=== PATIENT | male | born 1955 | race Caucasian/White ===

== ENCOUNTER 2018-10-20 18:24 | Inpatient (IN) | payer MEDICAID ==
[~2018-10-20] VITALS: Ht 177.8 cm; Wt 98.4 kg
--- NOTE | ~2018-10-20 | MORECARE ---
CASE MANAGEMENT DISCHARGE SUMMARY PATIENT: SONNY GALLARDO UNIT: [id number] ADM DATE: 10/20/18 AGE: 63 : 55 SEX: M ROOM/BED: D.1211 AUTHOR: NITZA,DOC PHYSICIAN: REFERRING PHYSICIAN: ONUR HAMMONDS MD DATE OF SERVICE: 10/29/18 Discharge Plan Patient Name: SONNY GALLARDO Facility: [facility]:[place] : 1955 Planned Disposition: Nursing Facility [place] Cert Anticipated Discharge Date: Discharge Date: Expected LOS: Initial Reviewer: [email or web address] Initial Review Date: 10/20/2018 Generated: 10/29/18 3:49 pm Comments DCP- Discharge Planning Updated by [email or web address]: Sara Contreras on 10/29/18 1:[address] CM called and left a message with Maia Rowe regarding plan for patient to return to [facility] tomorrow. CM called and spoke with Eliezer at [facility] about plan for patient to return to care home tomorrow. Faxed updated records as requested. CM called Beth Ortiz with [facility] ( ) and notified her of plans to discharge patient back to care home tomorrow. Beth verbalized understanding and satisfaction with discharge plan. CM will fax Beth update of records with DC summary upon discharge. DCP- Discharge Planning Updated by [id number]: Jake Meyer on 10/27/18 8:[address] Patient Name: SONNY GALLARDO Encounter No: [id number] : 1955 Primary Insurance: MEDICAID [place] Anticipated DC Date: Planned Disposition: Nursing Facility [place] Cert External Planned Provider: [facility], [facility] C[facility] MEDICAID BED DCP follow-up note: CM RECEIVED CALL FROM [facility]IA, , CLINICAL LIAISON FOR [facility], WHO REQUESTED HOSPITAL UPDATE. CM FAXED UPDATE TO [facility] VIA [facility] AT [phone]. CHART REVIEW INDICATES COCKTAIL SERVER FOR [facility] IS JEREMIAH CONTRERAS, CELL NUMBER [phone]. FACILITY CONTACT PHONE NUMBER [phone]. PT IS IN ADULT PROTECTIVE SERVICES CUSTODY. COCKTAIL SERVER FOR ADULT PROTECTIVE SERVICES IS BETH ORTIZ; Office [phone], , DISCHARGE PLAN IS FOR PT TO RETURN TO [facility], HOWEVER IF HE REQUIRES HD, THEY CANNOT ACCEPT HIM BACK. CM TO FOLLOW TO ASSIST NEEDED. Jake Meyer, CASE MANAGEMENT DCP- Discharge Planning Updated by [email or web address]: Breann Fleming on 10/26/18 6:[address] LATE ENTRY 1608 CM RECEIVED A TELEPHONE CALL FROM JEREMIAH CONTRERAS FROM [facility] [place]. MR GALLARDO IS A MOLDING ENGINEER RESIDENT AT THIS FACILITY. FACILITY CONTACT PHONE NUMBER [phone]. HER CELL NUMBER [phone]. SHE REQUESTED CLINICAL UPDATE. THE PLAN IS FOR HIM TO RETURN HOWEVER IF HE REQUIRES HD, THEY CANNOT ACCEPT HIM BACK. FACILITY WOULD NOT BE ABLE TO FACILITATE THIS TREATMENT PLAN. HE IS IN [facility] CUSTODY. CONTACT INFORMATION IN PREVIOUS NOTE. CONTACT NUMBER TO [facility] 3 PROVIDED SHE HAD BEEN TRANSFERED "MANY TIMES". CM TO FOLLOW TO ASSIST IS APPROPRIATE. DCP- Discharge Planning Updated by [email or web address]: Sara Contreras on 10/21/18 3:[address] CM received call from Beth Ortiz with [facility]. Notified CM that patient was in custody of [facility] and contact numbers provided for consents. Office [phone], , Last DP export: 10/27/18 8:02 Patient Name: SONNY GALLARDO Page 80854 at 1449 All edits/amendments must be made on the electronic document DICTATION DATE: 10/29/18 1448 GOAT HERDER: VICK 10/29/18 1448 RPT#: [id number] DC DATE: STATUS: ADM IN [facility] [address] [place] [address] END OF REPORT
--- NOTE | ~2018-10-20 | MORECARE ---
CASE MANAGEMENT DISCHARGE SUMMARY PATIENT: SONNY GALLARDO UNIT: [id number] ADM DATE: 10/20/18 AGE: 63 : 55 SEX: M ROOM/BED: D.1211 AUTHOR: HCARLES GODDARD PHYSICIAN: REFERRING PHYSICIAN: ONUR HAMMONDS MD DATE OF SERVICE: 10/26/18 Discharge Plan Patient Name: SONNY GALLARDO Facility: [facility]:[place] : 1955 Planned Disposition: Admitted as an inpatient to this hosp Anticipated Discharge Date: Discharge Date: Expected LOS: Initial Reviewer: [id number] Initial Review Date: 10/20/2018 Generated: 10/26/18 8:56 pm Comments DCP- Discharge Planning Updated by [email or web address]: Breann Bernadette on 10/26/18 6:[address] LATE ENTRY 1608 CM RECEIVED A TELEPHONE CALL FROM [facility]H CONTR[facility]AS [facility]. 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 FACILITY CONTACT PHONE NUMBER [phone]. HER CELL NUMBER [phone]. SHE REQUESTED CLINICAL UPDATE. THE PLAN IS FOR HIM TO RETURN HOWEVER IF HE REQUIRES HD, THEY CANNOT ACCEPT HIM BACK. FACILITY WOULD NOT BE ABLE TO FACILITATE THIS TREATMENT PLAN. HE IS IN APS CUSTODY. CONTACT INFORMATION IN PREVIOUS NOTE. CONTACT NUMBER TO [facility] 3 PROVIDED SHE HAD BEEN TRANSFERED "MANY TIMES". CM TO FOLLOW TO ASSIST IS APPROPRIATE. DCP- Discharge Planning Updated by [id number]: Sara Contreras on 10/21/18 3:[address] CM received call from Beth Ortiz with [facility]. Notified CM that patient was in custody of [facility] and contact numbers provided for consents. Office [phone], , Last DP export: 10/21/18 4:09 p Patient Name: SONNY GALLARDO Page 42825 at 6 All edits/amendments must be made on the electronic document DICTATION DATE: 10/26/181954 TRANSPORT TANK TECHNICIAN: DM 10/26/181954 RPT#: [id number] DC DATE: STATUS: ADM IN [facility] [address] [place] [address] END OF REPORT
--- NOTE | ~2018-10-20 | MORECARE ---
CASE MANAGEMENT DISCHARGE SUMMARY PATIENT: SONNY GALLARDO UNIT: [id number] ADM DATE: 10/20/18 AGE: 63 : 55 SEX: M ROOM/BED: D.1211 AUTHOR: CHARLES GODDARD PHYSICIAN: REFERRING PHYSICIAN: ONUR HAMMONDS MD DATE OF SERVICE: 10/21/18 Discharge Plan Patient Name: SONNY GALLARDO [facility] [facility] 1955 Planned Disposition: Anticipated Discharge Date: Discharge Date: Expected LOS: Initial Reviewer: [id number] Initial Review Date: 10/20/2018 Generated: 10/21/18 6:01 pm Comments DCP- Discharge Planning Updated by [email or web address]: Sara Contreras on 10/21/18 3:[address] CM received call from Beth Otriz with [facility]. Notified CM that patient was in custody of [facility] and contact numbers provided for consents. Office [phone], , External Providers External Provider: OTHER-OTHER Next Contact Date: Service Request Date: Service Type: Resolution: Reviewer: Comments: Last DP export: 10/21/18 3:53 p Patient Name: SONNY GALLARDO Page 97586 at 1701 All edits/amendments must be made on the electronic document DICTATION DATE: 10/21/181699 COMPUTER NETWORKER: VICK 10/21/181699 RPT#: [id number] DC DATE: STATUS: ADM IN [facility] [address] [place] [address] END OF REPORT
--- NOTE | ~2018-10-20 | MORECARE ---
CASE MANAGEMENT DISCHARGE SUMMARY PATIENT: SONNY GALLARDO UNIT: [id number] ADM DATE: 10/20/18 AGE: 63 : 55 SEX: M ROOM/BED: D.1211 AUTHOR: NITZA,DOC PHYSICIAN: REFERRING PHYSICIAN: ONUR HAMMONDS MD DATE OF SERVICE: 10/27/18 Discharge Plan Patient Name: SONNY GALLARDO Facility: [facility]:[place] : 1955 Planned Disposition: Nursing Facility [place] Cert Anticipated Discharge Date: Discharge Date: Expected LOS: Initial Reviewer: [id number] Initial Review Date: 10/20/2018 Generated: 10/27/18 10:02 am Comments DCP- Discharge Planning Updated by [id number]: Jake Meyer on 10/27/18 8:[address] Patient Name: SONNY GALLARDO Encounter No: [id number] : 1955 Primary Insurance: MEDICAID [place] Anticipated DC Date: Planned Disposition: Nursing Facility [place] Cert External Planned Provider: [facility], VINYL INSTALLER CARE MEDICAID BED DCP follow-up note: CM RECEIVED CALL FROM [employer], , CLINICAL LIAISON FOR [facility], WHO REQUESTED HOSPITAL UPDATE. CM FAXED UPDATE TO [facility] VIA [facility] AT [phone]. CHART REVIEW INDICATES NATIONAL FLATBED TRUCK DRIVER FOR [facility] IS JEREMIAH CONTRERAS, CELL NUMBER [phone]. FACILITY CONTACT PHONE NUMBER [phone]. PT IS IN ADULT PROTECTIVE SERVICES CUSTODY. NATIONAL FLATBED TRUCK DRIVER FOR ADULT PROTECTIVE SERVICES IS BETH ORTIZ; Office [phone], , DISCHARGE PLAN IS FOR PT TO RETURN TO [facility], HOWEVER IF HE REQUIRES HD, THEY CANNOT ACCEPT HIM BACK. CM TO FOLLOW TO ASSIST NEEDED. Jake Meyer, CASE MANAGEMENT DCP- Discharge Planning Updated by [email or web address]: Breann Fleming on 10/26/18 6:[address] LATE ENTRY 1608 CM RECEIVED A TELEPHONE CALL FROM JEREMIAH CONTRERAS FROM [facility] MR GALLARDO IS A VINYL INSTALLER RESIDENT AT THIS FACILITY. FACILITY CONTACT PHONE NUMBER [phone]. HER CELL NUMBER [phone]. SHE REQUESTED CLINICAL UPDATE. THE PLAN IS FOR HIM TO RETURN HOWEVER IF HE REQUIRES HD, THEY CANNOT ACCEPT HIM BACK. FACILITY WOULD NOT BE ABLE TO FACILITATE THIS TREATMENT PLAN. HE IS IN APS CUSTODY. CONTACT INFORMATION IN PREVIOUS NOTE. CONTACT NUMBER TO [facility] 3 PROVIDED SHE HAD BEEN TRANSFERED "MANY TIMES". CM TO FOLLOW TO ASSIST IS APPROPRIATE. DCP- Discharge Planning Updated by [email or web address]: Sara Contreras on 10/21/18 3:[address] CM received call from Beth Ortiz with [facility]. Notified CM that patient was in custody of [facility] and contact numbers provided for consents. Office [phone], , Last DP export: 10/27/18 7:52 Patient Name: SONNY GALLARDO Page 48626 at 0902 All edits/amendments must be made on the electronic document DICTATION DATE: 10/27/18901 FOOTWEAR SALES COORDINATOR: VICK 10/27/18901 RPT#: [id number] DC DATE: STATUS: ADM IN [facility] [address] [place] [address] END OF REPORT
--- NOTE | ~2018-10-20 | OP ---
PATIENT NAME: SONNY GALLARDO MEDICAL RECORD: [id number] :55 LOCATION:D.M3 D.1211 ADMISSION DATE:10/20/18 SURGEON: SHAGGY PAEZ MD DATE OF OPERATION: 10/25/2018 PREOPERATIVE DIAGNOSES: 1. Need for IV access. 2. Dysphagia. 3. History of cerebrovascular accident. 4. Right-sided paresthesias. POSTOPERATIVE DIAGNOSES: 1. Need for IV access. 2. Dysphagia. 3. History of cerebrovascular accident. 4. Right-sided paresthesias. PROCEDURE: Left subclavian vein triple-lumen central venous line placement. SURGEON: Shaggy Paez MD REPORT OF PROCEDURE: The patient's left chest was prepped and draped in sterile fashion. A 5 mL of 1% lidocaine was infused into the subcutaneous tissues. A needle was used to cannulate the left subclavian vein and a guidewire was advanced with ease. Over this wire, a dilator was placed followed by the triple lumen catheter. The catheter aspirated nonpulsatile dark blood and flushed easily in all 3 ports. This was sutured into place with 3-0 silk ties and dressed appropriately. COMPLICATIONS: None. CONDITION: Stable. ANESTHESIA: Local. BLOOD LOSS: Minimal. Procedure done at the bedside. TRANSINT:[id number] Voice Confirmation ID: [id number] DOCUMENT ID: [id number] SHAGGY PAEZ MD CC: [id number] DICTATION DATE: 10/25/18 1134 DIESEL SERVICE APPRENTICE: 10/25/[address] [facility] [address] [place] [address]
--- NOTE | ~2018-10-20 | MORECARE ---
CASE MANAGEMENT DISCHARGE SUMMARY PATIENT: SONNY GALLARDO UNIT: [id number] ADM DATE: 10/20/18 AGE: 63 : 55 SEX: M ROOM/BED: D.1211 AUTHOR: CHARLES GODDARD PHYSICIAN: REFERRING PHYSICIAN: ONUR HAMMONDS MD DATE OF SERVICE: 10/27/18 Discharge Plan Patient Name: SONNY GALLARDO Facility: [facility]:[place] : 1955 Planned Disposition: Admitted as an inpatient to this hosp Anticipated Discharge Date: Discharge Date: Expected LOS: Initial Reviewer: [email or web address] Initial Review Date: 10/20/2018 Generated: 10/27/18 9:52 am Comments DCP- Discharge Planning Updated by [email or web address]: Breann Fleming on 10/26/18 6:[address] LATE ENTRY 1608 CM RECEIVED A TELEPHONE CALL FROM JEREMIAH CONTRERAS FROM [facility]. MR GALLARDO IS A ASSOCIATE SPA DIRECTOR RESIDENT AT THIS FACILITY. FACILITY CONTACT PHONE NUMBER [phone]. HER CELL NUMBER [phone]. SHE REQUESTED CLINICAL UPDATE. THE PLAN IS FOR HIM TO RETURN HOWEVER IF HE REQUIRES HD, THEY CANNOT ACCEPT HIM BACK. FACILITY WOULD NOT BE ABLE TO FACILITATE THIS TREATMENT PLAN. HE IS IN [facility]PS CUSTODY. CONTACT INFORMATION IN PREVIOUS NOTE. CONTACT NUMBER TO [facility] 3 PROVIDED SHE HAD BEEN TRANSFERED "MANY TIMES". CM TO FOLLOW TO ASSIST IS APPROPRIATE. DCP- Discharge Planning Updated by [id number]: Sara Contreras on 10/21/18 3:[address] CM received call from Beth Ortiz with [facility]. Notified CM that patient was in custody of [facility] and contact numbers provided for consents. Office [phone], , External Providers External Provider: OTHER-OTHER Next Contact Date: 10/27/2018 Service Request Date: Service Type: Resolution: Reviewer: Comments: Last DP export: 10/26/18 6:56 Patient Name: SONNY GALLARDO Page 71727 at 0852 All edits/amendments must be made on the electronic document DICTATION DATE: 10/27/18851 ECCLESIASTICAL WORKER: VICK 10/27/18851 RPT#: [id number] DC DATE: STATUS: ADM IN [facility] [address] [place] [address] END OF REPORT
--- NOTE | ~2018-10-20 | MORECARE ---
CASE MANAGEMENT DISCHARGE SUMMARY PATIENT: SONNY GALLARDO UNIT: [id number] ADM DATE: 10/20/18 AGE: 63 : 55 SEX: M ROOM/BED: D.1211 AUTHOR: CHARLES GODDARD PHYSICIAN: REFERRING PHYSICIAN: ONUR HAMMONDS MD DATE OF SERVICE: 10/21/18 Discharge Plan Patient Name: SONNY GALLARDO Facility: [facility]:[place] : 1955 Planned Disposition: Anticipated Discharge Date: Discharge Date: Expected LOS: Initial Reviewer: [email or web address] Initial Review Date: 10/20/2018 Generated: 10/21/18 5:53 pm Comments DCP- Discharge Planning Updated by [email or web address]: Sara Contreras on 10/21/18 3:[address] CM received call from Beth Ortiz with [facility]. Notified CM that patient was in custody of [facility] and contact numbers provided for consents. Office [phone], , Patient Name: SONNY GALLARDO Page 71350 at 1653 All edits/amendments must be made on the electronic document DICTATION DATE: 10/21/181652 BAND EDGER: VICK 10/21/181652 RPT#: [id number] DC DATE: STATUS: ADM IN [facility] [address] [place] [address] END OF REPORT
--- NOTE | ~2018-10-20 | MORECARE ---
CASE MANAGEMENT DISCHARGE SUMMARY PATIENT: SONNY GALLARDO UNIT: [id number] ADM DATE: 10/20/18 AGE: 63 : 55 SEX: M ROOM/BED: D.1211 AUTHOR: NITZADOC PHYSICIAN: REFERRING PHYSICIAN: ONUR HAMMONDS MD DATE OF SERVICE: 11/02/18 Discharge Plan Patient Name: SONNY GALLARDO Facility: [facility]:[place] : 1955 Planned Disposition: Nursing Facility [place] Cert Anticipated Discharge Date: 10/30/18 Discharge Date: 10/30/2018 Expected LOS: 10 Initial Reviewer: [id number] Initial Review Date: 10/20/2018 Generated: 11/02/18 3:38 pm Comments DCP- Discharge Planning Updated by [id number]: Sara Contreras on 10/29/18 1:[address] CM called and left a message with Maia Rowe regarding plan for patient to return to [facility] tomorrow. CM called and spoke with Eliezer at [facility] about plan for patient to return to [facility] tomorrow. Faxed updated records as requested. CM called Beth Ortiz with [facility] ( ) and notified her of plans to discharge [facility] to [facility] tomorrow. Beth verbalized understanding and satisfaction with discharge plan. CM will fax Beth update of records with DC summary upon discharge. DCP- Discharge Planning Updated by [email or web address]: Jake Meyer on 10/27/18 8:[address] Patient Name: SONNY GALLARDO Encounter No: [id number] : 1955 Primary Insurance: MEDICAID [place] Anticipated DC Date: Planned Disposition: Nursing Facility [place] Cert External Planned Provider: [facility], APPLICATION MANAGER CARE MEDICAID BED DCP follow-up note: CM RECEIVED CALL FROM [facility], , CLINICAL LIAISON FOR [facility], WHO REQUESTED HOSPITAL UPDATE. CM FAXED UPDATE TO [facility]IA [facility] AT [phone]. CHART REVIEW INDICATES SALES AND MERCHANDISING REPRESENTATIVE FOR [facility] IS JEREMIAH CONTRERAS, CELL NUMBER [phone]. FACILITY CONTACT PHONE NUMBER [phone]. PT IS IN ADULT PROTECTIVE SERVICES CUSTODY. SALES AND MERCHANDISING REPRESENTATIVE FOR ADULT PROTECTIVE SERVICES IS BETH ORTIZ; Office [phone], , DISCHARGE PLAN IS FOR PT TO RETURN TO [facility], HOWEVER IF HE REQUIRES HD, THEY CANNOT ACCEPT HIM BACK. CM TO FOLLOW TO ASSIST NEEDED. Jake Meyer, CASE MANAGEMENT DCP- Discharge Planning Updated by [id number]: Breann Fleming on 10/26/18 6:[address] LATE ENTRY 1608 CM RECEIVED A TELEPHONE CALL FROM JEREMIAH CONTRERAS FROM [facility]. MR GALLARDO IS A [employer]CI RESIDENT AT THIS FACILITY. FACILITY CONTACT PHONE NUMBER [phone]. HER CELL NUMBER [phone]. SHE REQUESTED CLINICAL UPDATE. THE PLAN IS FOR HIM TO RETURN HOWEVER IF HE REQUIRES HD, THEY CANNOT ACCEPT HIM BACK. FACILITY WOULD NOT BE ABLE TO FACILITATE THIS TREATMENT PLAN. HE IS IN [facility] CUSTODY. CONTACT INFORMATION IN PREVIOUS NOTE. CONTACT NUMBER TO [facility] 3 PROVIDED SHE HAD BEEN TRANSFERED "MANY TIMES". CM TO FOLLOW TO ASSIST IS APPROPRIATE. DCP- Discharge Planning Updated by [id number]: Sara Contreras on 10/21/18 3:[address] CM received call from Beth Ortiz with [facility]. Notified CM that patient was in custody of [facility] and contact numbers provided for consents. Office [phone], , Last DP export: 10/29/18 1:49 Patient Name: SONNY GALLARDO Page 76088 at 1438 All edits/amendments must be made on the electronic document DICTATION DATE: 11/02/188 DETECTIVE PRIVATE EYE: VICK 11/02/18 143 RPT#: [id number] DC DATE:10/30/18 STATUS: DIS IN [facility] [address] [place] [address] END OF REPORT
--- NOTE | ~2018-10-20 | MORECARE ---
CASE MANAGEMENT DISCHARGE SUMMARY PATIENT: SONNY GALLARDO UNIT: [id number] ADM DATE: 10/20/18 AGE: 63 : 55 SEX: M ROOM/BED: D.1211 AUTHOR: NITZADOC PHYSICIAN: REFERRING PHYSICIAN: ONUR HAMMONDS MD DATE OF SERVICE: 11/02/18 Discharge Plan Patient Name: SONNY GALLARDO Facility: [facility]:[place] : 1955 Planned Disposition: Nursing Facility [place] Cert Anticipated Discharge Date: 10/30/18 Discharge Date: 10/30/2018 Expected LOS: 10 Initial Reviewer: [email or web address] Initial Review Date: 10/20/2018 Generated: 11/02/18 3:47 pm Comments DCP- Discharge Planning Updated by [id number]: Breann Fleming on 11/02/18 1:[address] LATE ENTRY 1237 TC TO JEREMIAH CONTRERAS BILLING ASSISTANT AT [facility]. LEFT VOICE MAIL ON [phone] HER PERSONAL CELL TO VERIFY IF SHE HAD ALL NECESSARY INFORMATION OR HAD ANY QUESTIONS. NO CALL BACK AT THIS TIME. DCP- Discharge Planning Updated by [email or web address]: Sara Contreras on 10/29/18 1:[address] CM called and left a message with Maia Rowe regarding plan for patient to return to [facility] home tomorrow. CM called and spoke with Eliezer at [facility] about plan for [facility]. Faxed updated records as requested. CM called Beth Ortiz with [facility] ( ) and notified her of plans to discharge patient [facility]. Beth verbalized understanding and satisfaction with discharge plan. CM will fax Beth update of records with DC summary upon discharge. DCP- Discharge Planning Updated by [id number]: Jake Meyer on 10/27/18 8:[address] Patient Name: SONNY GALLARDO Encounter No: [id number] : 1955 Primary Insurance: MEDICAID [place] Anticipated DC Date: Planned Disposition: Nursing Facility [place] Cert External Planned Provider: [facility], POLISHING MACHINE OPERATOR HELPER CARE MEDICAID BED DCP follow-up note: CM RECEIVED CALL FROM MAIA, , CLINICAL LIAISON FOR [facility], WHO REQUESTED HOSPITAL UPDATE. CM FAXED UPDATE TO [facility] VIA [facility] AT [phone]. CHART REVIEW INDICATES BILLING ASSISTANT FOR [facility] IS JEREMIAH CONTRERAS, CELL NUMBER [phone]. FACILITY CONTACT PHONE NUMBER [phone]. PT IS IN ADULT PROTECTIVE SERVICES CUSTODY. BILLING ASSISTANT FOR ADULT PROTECTIVE SERVICES IS BETH ORTIZ; Office [phone], , DISCHARGE PLAN IS FOR PT TO RETURN TO [facility], HOWEVER IF HE REQUIRES HD, THEY CANNOT ACCEPT HIM BACK. CM TO FOLLOW TO ASSIST NEEDED. Jake Meyer, CASE MANAGEMENT DCP- Discharge Planning Updated by [id number]: Breann Allens on 10/26/18 6:[address] LATE ENTRY 1608 CM RECEIVED A TELEPHONE CALL FROM JEREMIAH CONTRERAS FROM [facility]. MR GALLARDO IS A POLISHING MACHINE OPERATOR HELPER RESIDENT AT THIS FACILITY. FACILITY CONTACT PHONE NUMBER [phone]. HER CELL NUMBER [phone]. SHE REQUESTED CLINICAL UPDATE. THE PLAN IS FOR HIM TO RETURN HOWEVER IF HE REQUIRES HD, THEY CANNOT ACCEPT HIM BACK. FACILITY WOULD NOT BE ABLE TO FACILITATE THIS TREATMENT PLAN. HE IS IN [facility] CUSTODY. CONTACT INFORMATION IN PREVIOUS NOTE. CONTACT NUMBER TO [facility] 3 PROVIDED SHE HAD BEEN TRANSFERED "MANY TIMES". CM TO FOLLOW TO ASSIST IS APPROPRIATE. DCP- Discharge Planning Updated by [id number]: Saraalanis Contreras on 10/21/18 3:[address] CM received call from Beth Ortiz with [facility]. Notified CM that patient was in custody of [facility] and contact numbers provided for consents. Office [phone], , Last DP export: 11/02/18 1:38 Patient Name: SONNY GALLARDO Page 81899 at 3607 All edits/amendments must be made on the electronic document DICTATION DATE: 11/02/186 LABORATORY MONITOR: VICK 11/02/18 1441 RPT#: [id number] DC DATE:10/30/18 STATUS: DIS IN [facility] [address] [place] [address] END OF REPORT
--- NOTE | ~2018-10-20 | MORECARE ---
CASE MANAGEMENT DISCHARGE SUMMARY PATIENT: SONNY GALLARDO UNIT: [id number] ADM DATE: 10/20/18 AGE: 63 : 55 SEX: M ROOM/BED: D.1211 AUTHOR: CHARLES GODDARD PHYSICIAN: REFERRING PHYSICIAN: ONUR HAMMONDS MD DATE OF SERVICE: 10/21/18 Discharge Plan Patient Name: SONNY GALLARDO [facility] : 1955 Planned Disposition: Anticipated Discharge Date: Discharge Date: Expected LOS: Initial Reviewer: [id number] Initial Review Date: 10/20/2018 Generated: 10/21/18 6:09 pm Comments DCP- Discharge Planning Updated by [id number]: Sara Contreras on 10/21/18 3:[address] CM received call from Beth Ortiz with [facility]. Notified CM that patient was in custody of [facility] and contact numbers provided for consents. Office [phone], , External Providers External Provider: OTHER-OTHER Next Contact Date: Service Request Date: Service Type: Resolution: Reviewer: Comments: Last DP export: 10/21/18 4:01 p Patient Name: SONNY GALLARDO Page 92358 at 1709 All edits/amendments must be made on the electronic document DICTATION DATE: 10/21/181708 QUALITY COORDINATOR: VICK 10/21/181708 RPT#: [id number] DC DATE: STATUS: ADM IN [facility] [address] [place] [address] END OF REPORT
[2018-10-21] VITALS (7 sets, daily range): BP systolic 111–155; BP diastolic 44–79; BMI 31.2; BMI 31.1
[2018-10-21] MEDS ORDERED: HUMULIN R100 U/ML SC (01:15)
[2018-10-21] MEDS ORDERED: PHENERGAN25 M1 PO (01:18)
[2018-10-21] MEDS ORDERED: BOUDREAUXS BUTT60 GM TOPICAL (01:20)
[2018-10-21] MEDS ORDERED: APAP325 MG PO (01:21)
[2018-10-21] MEDS ORDERED: DULCOLAX10 MG/SUPP RC (01:22)
[2018-10-21] MEDS ORDERED: ATIVAN0.5 MG PO (01:26)
[2018-10-21] MEDS ORDERED: MORPHINE S10 MG/5 ML PO (01:28)
[2018-10-21] MEDS ORDERED: ROCEPHIN 1 GM/D51 G1 IVPB (01:30)
[2018-10-21 06:22] LABS: HEMATOCRIT 33.9 % (42.0-54.0); HEMOGLOBIN 10.7 g/dL (13.5-17.5); MCH 26.4 pg (26.0-34.0); MCHC 31.6 g/dL (31.0-37.0); MCV 83.5 fL (80.0-100.0); MEAN PLATELET VOLUME 11.2 fL (7.4-10.4); PLATELET COUNT 111 10x3/uL (130-400); RBC 4.06 10x6/uL (4.20-6.10); RDW 16.2 % (11.5-14.5); WBC 24.1 10x3/uL (4.8-10.8)
[2018-10-21 06:41] LABS: ANION GAP 21.9 mmol/L (8-16); BILIRUBIN - TOTAL 0.38 mg/dL (0.2-1.3); CALCIUM 7.9 mg/dL (8.5-10.1); CARBON DIOXIDE 19.9 mmol/L (21.0-32.0); CREATININE - SERUM 5.4 mg/dL (0.6-1.3); POTASSIUM - SERUM 3.8 mmol/L (3.5-5.1)
[2018-10-21 07:32] LABS: LYMPHOCYTES 6 % (15-50); MONOCYTES 9 % (2-11); NEUTROPHILS 81 % (40-80); PLATELET ESTIMATE DECREASED; ROULEAUX OCC
[2018-10-21 12:31] LABS: APTT 52.5 SECONDS (22.8-39.4); INR 1.46 (0.85-1.17); PROTIME 17.2 SECONDS (11.6-15.0)
[2018-10-21 12:38] LABS: % SATURATION 19 % (15-55); IRON 31 ug/dl (35-150); TOTAL IRON BIND CAPACITY 157 ug/dl (260-445); UNSAT IRON BIND CAPACITY 126 ug/dl (150-375)
[2018-10-21 14:54] LABS: APPEARANCE HAZY (CLEAR); COLOR YELLOW (YELLOW); NITRITE NEGATIVE (NEGATIVE); PROTEIN 1+ mg/dL (NEGATIVE); SPECIFIC GRAVITY 1.015 (1.005-1.020)
[2018-10-21 14:55] LABS: BILIRUBIN NEGATIVE (NEGATIVE); CREATININE - URINE 94.9 mg/dL (30-125); GLUCOSE 50 mg/dL (NEGATIVE); KETONE NEGATIVE (NEGATIVE); PROTEIN - URINE 268.4 mg/dL (0.0-11.9); RED CELLS - URINE 0-5 /hpf (0-5); UROBILINOGEN NORMAL (NORMAL); WHITE CELLS - URINE 25-50 /hpf (0-5)
[2018-10-21 14:56] LABS: BACTERIA MODERATE /hpf (NONE SEEN)
[2018-10-22] VITALS: BP 105/61
[2018-10-22 04:00] VITALS: BP 169/65
[2018-10-22 08:05] VITALS: BP 113/61
[2018-10-22 09:19] LABS: FOLATE (FOLIC ACID) - SERUM 3.7 ng/mL (>3.0)
[2018-10-22 10:38] VITALS: BP 156/64
[2018-10-22 11:06] LABS: ANION GAP 20.5 mmol/L (8-16); CALCIUM 7.7 mg/dL (8.5-10.1); CARBON DIOXIDE 19.1 mmol/L (21.0-32.0); CREATININE - SERUM 5.3 mg/dL (0.6-1.3); POTASSIUM - SERUM 3.6 mmol/L (3.5-5.1)
[2018-10-22 11:10] LABS: BASOPHILS 0.6 % (0-2); EOSINOPHILS 3.8 % (0-7); HEMATOCRIT 32.5 % (42.0-54.0); IMMATURE GRANULOCYTES 3.2 % (0-5); LYMPHOCYTES 13.4 % (15-50); MCH 26.5 pg (26.0-34.0); MCHC 30.8 g/dL (31.0-37.0); MEAN PLATELET VOLUME 11.6 fL (7.4-10.4); MONOCYTES 6.6 % (2-11); NEUTROPHILS 72.4 % (40-80); PLATELET COUNT 117 10x3/uL (130-400); RBC 3.78 10x6/uL (4.20-6.10); RDW 17.1 % (11.5-14.5)
[2018-10-22 11:21] LABS: WBC 17.7 10x3/uL (4.8-10.8)
[2018-10-22 14:58] VITALS: BP 182/76
[2018-10-22 20:00] VITALS: BP 181/74
[2018-10-23] VITALS: BP 161/72
[2018-10-23 04:00] VITALS: BP 168/71
[2018-10-23 07:21] LABS: BASOPHILS 0.2 % (0-2); EOSINOPHILS 1.8 % (0-7); HEMOGLOBIN 10.1 g/dL (13.5-17.5); IMMATURE GRANULOCYTES 2.7 % (0-5); MCH 26.2 pg (26.0-34.0); MCHC 30.6 g/dL (31.0-37.0); MCV 85.5 fL (80.0-100.0); MEAN PLATELET VOLUME 11.1 fL (7.4-10.4); MONOCYTES 7.5 % (2-11); NEUTROPHILS 72.8 % (40-80); PLATELET COUNT 116 10x3/uL (130-400); RBC 3.86 10x6/uL (4.20-6.10); RDW 17.3 % (11.5-14.5); WBC 17.4 10x3/uL (4.8-10.8)
[2018-10-23 07:34] LABS: ANION GAP 18.9 mmol/L (8-16); CALCIUM 7.9 mg/dL (8.5-10.1); CARBON DIOXIDE 21.4 mmol/L (21.0-32.0); CREATININE - SERUM 4.8 mg/dL (0.6-1.3); POTASSIUM - SERUM 3.3 mmol/L (3.5-5.1); VANCOMYCIN - RANDOM 14.4 ug/mL (10.0-20.0)
[2018-10-23 07:41] VITALS: BP 132/66
[2018-10-23 10:40] VITALS: BP 118/62
[2018-10-23 14:17] VITALS: Ht 177.8 cm; Wt 98.4 kg
[2018-10-23 14:43] VITALS: BP 126/62
[2018-10-23 20:00] VITALS: BP 93/69
[2018-10-24] VITALS: BP 134/76
[2018-10-24 04:00] VITALS: BP 127/77
[2018-10-24 18:19] LABS: BASOPHILS 0.5 % (0-2); EOSINOPHILS 2.3 % (0-7); HEMOGLOBIN 10.3 g/dL (13.5-17.5); IMMATURE GRANULOCYTES 2.1 % (0-5); LYMPHOCYTES 21.2 % (15-50); MCH 26.5 pg (26.0-34.0); MCHC 31.2 g/dL (31.0-37.0); MCV 84.8 fL (80.0-100.0); MEAN PLATELET VOLUME 11.3 fL (7.4-10.4); MONOCYTES 5.5 % (2-11); NEUTROPHILS 68.4 % (40-80); PLATELET COUNT 108 10x3/uL (130-400); RBC 3.89 10x6/uL (4.20-6.10); RDW 17.5 % (11.5-14.5); WBC 14.6 10x3/uL (4.8-10.8)
[2018-10-24 18:43] LABS: CALCIUM 7.9 mg/dL (8.5-10.1); CARBON DIOXIDE 21.3 mmol/L (21.0-32.0); CREATININE - SERUM 3.8 mg/dL (0.6-1.3)
[2018-10-24 18:45] LABS: ANION GAP 19.8 mmol/L (8-16); POTASSIUM - SERUM 4.1 mmol/L (3.5-5.1)
[2018-10-24 20:00] VITALS: BP 142/69
[2018-10-25] VITALS: BP 138/90
[2018-10-25 06:00] VITALS: BP 184/88
[2018-10-25 06:17] LABS: BASOPHILS 0.6 % (0-2); EOSINOPHILS 2.1 % (0-7); HEMATOCRIT 37.4 % (42.0-54.0); HEMOGLOBIN 11.5 g/dL (13.5-17.5); IMMATURE GRANULOCYTES 1.1 % (0-5); LYMPHOCYTES 19.3 % (15-50); MCH 26.6 pg (26.0-34.0); MCHC 30.7 g/dL (31.0-37.0); MCV 86.4 fL (80.0-100.0); MEAN PLATELET VOLUME 11.7 fL (7.4-10.4); MONOCYTES 4.7 % (2-11); NEUTROPHILS 72.2 % (40-80); PLATELET COUNT 114 10x3/uL (130-400); RBC 4.33 10x6/uL (4.20-6.10); RDW 17.9 % (11.5-14.5); WBC 14.4 10x3/uL (4.8-10.8)
[2018-10-25 06:43] LABS: ANION GAP 19.7 mmol/L (8-16); CALCIUM 8.1 mg/dL (8.5-10.1); CARBON DIOXIDE 22.2 mmol/L (21.0-32.0); CREATININE - SERUM 3.8 mg/dL (0.6-1.3); POTASSIUM - SERUM 3.9 mmol/L (3.5-5.1)
[2018-10-25 08:00] VITALS: BP 97/52
[2018-10-25 12:00] VITALS: BP 130/84
[2018-10-25 16:00] VITALS: BP 142/92
[2018-10-25 20:00] VITALS: BP 195/76
[2018-10-26 00:29] VITALS: BP 170/56
[2018-10-26 04:00] VITALS: BP 174/53
[2018-10-26 06:17] LABS: CALCIUM 7.8 mg/dL (8.5-10.1); CARBON DIOXIDE 25.5 mmol/L (21.0-32.0); CREATININE - SERUM 3.3 mg/dL (0.6-1.3)
[2018-10-26 06:18] LABS: HEMATOCRIT 33.7 % (42.0-54.0); HEMOGLOBIN 10.3 g/dL (13.5-17.5); MCH 26.2 pg (26.0-34.0); MCHC 30.6 g/dL (31.0-37.0); MCV 85.5 fL (80.0-100.0); MEAN PLATELET VOLUME 12.3 fL (7.4-10.4); PLATELET COUNT 103 10x3/uL (130-400); RBC 3.93 10x6/uL (4.20-6.10); RDW 17.7 % (11.5-14.5); WBC 14.4 10x3/uL (4.8-10.8)
[2018-10-26 06:19] LABS: BASOPHILS 0.4 % (0-2); EOSINOPHILS 2.8 % (0-7); LYMPHOCYTES 24.4 % (15-50); MONOCYTES 5.8 % (2-11); NEUTROPHILS 65.6 % (40-80)
[2018-10-26 06:30] LABS: ANION GAP 14.6 mmol/L (8-16); POTASSIUM - SERUM 3.1 mmol/L (3.5-5.1)
[2018-10-26 07:54] VITALS: BP 136/67
[2018-10-26 11:13] VITALS: BP 132/72
[2018-10-26 20:37] VITALS: BP 124/71
[2018-10-27] VITALS: BP 121/84
[2018-10-27 04:00] VITALS: BP 134/88
[2018-10-27 06:09] LABS: BASOPHILS 0.5 % (0-2); HEMATOCRIT 33.4 % (42.0-54.0); HEMOGLOBIN 10.3 g/dL (13.5-17.5); IMMATURE GRANULOCYTES 0.7 % (0-5); LYMPHOCYTES 24.9 % (15-50); MCH 26.5 pg (26.0-34.0); MCHC 30.8 g/dL (31.0-37.0); MCV 86.1 fL (80.0-100.0); MONOCYTES 5.2 % (2-11); NEUTROPHILS 65.7 % (40-80); PLATELET COUNT 83 10x3/uL (130-400); RBC 3.88 10x6/uL (4.20-6.10); RDW 17.8 % (11.5-14.5); WBC 12.1 10x3/uL (4.8-10.8)
[2018-10-27 06:27] LABS: ANION GAP 15.8 mmol/L (8-16); CALCIUM 7.5 mg/dL (8.5-10.1); CARBON DIOXIDE 24.4 mmol/L (21.0-32.0); CREATININE - SERUM 3.1 mg/dL (0.6-1.3); POTASSIUM - SERUM 3.2 mmol/L (3.5-5.1)
[2018-10-27 17:08] VITALS: BP 140/60
[2018-10-27 20:00] VITALS: BP 155/44
[2018-10-28] VITALS: BP 112/56
[2018-10-28 05:16] VITALS: BP 132/63
[2018-10-28 06:46] LABS: BILIRUBIN - TOTAL 0.45 mg/dL (0.2-1.3); CARBON DIOXIDE 20.5 mmol/L (21.0-32.0); CREATININE - SERUM 3.2 mg/dL (0.6-1.3); PROTEIN - SERUM 5.9 g/dL (6.4-8.2)
[2018-10-28 06:49] LABS: POTASSIUM - SERUM 3.5 mmol/L (3.5-5.1)
[2018-10-28 07:00] LABS: BASOPHILS 0.3 % (0-2); EOSINOPHILS 3.5 % (0-7); HEMATOCRIT 32.9 % (42.0-54.0); HEMOGLOBIN 10.2 g/dL (13.5-17.5); LYMPHOCYTES 22.2 % (15-50); MCH 26.4 pg (26.0-34.0); MCV 85.2 fL (80.0-100.0); MONOCYTES 5.2 % (2-11); NEUTROPHILS 67.8 % (40-80); PLATELET COUNT 79 10x3/uL (130-400); RBC 3.86 10x6/uL (4.20-6.10); RDW 17.7 % (11.5-14.5); WBC 13.1 10x3/uL (4.8-10.8)
[2018-10-28 07:58] VITALS: BP 124/67
[2018-10-28 11:37] VITALS: BP 147/69
[2018-10-28 16:50] VITALS: BP 136/77
[2018-10-28 20:24] VITALS: BP 123/60
[2018-10-29 00:58] VITALS: BP 157/67
[2018-10-29 04:00] VITALS: BP 122/59
[2018-10-29 04:10] LABS: BASOPHILS 0.3 % (0-2); EOSINOPHILS 3.2 % (0-7); HEMATOCRIT 34.3 % (42.0-54.0); HEMOGLOBIN 10.7 g/dL (13.5-17.5); IMMATURE GRANULOCYTES 0.8 % (0-5); LYMPHOCYTES 18.2 % (15-50); MCH 26.1 pg (26.0-34.0); MCHC 31.2 g/dL (31.0-37.0); MCV 83.7 fL (80.0-100.0); MONOCYTES 5.8 % (2-11); NEUTROPHILS 71.7 % (40-80); RDW 17.2 % (11.5-14.5); WBC 12.7 10x3/uL (4.8-10.8)
[2018-10-29 04:23] LABS: PLATELET COUNT 62 10x3/uL (130-400)
[2018-10-29 04:42] LABS: ALBUMIN 1.9 g/dL (3.4-5.0); ANION GAP 17.5 mmol/L (8-16); BILIRUBIN - TOTAL 0.3 mg/dL (0.2-1.3); CALCIUM 7.7 mg/dL (8.5-10.1); CARBON DIOXIDE 20.6 mmol/L (21.0-32.0); CREATININE - SERUM 3.1 mg/dL (0.6-1.3); POTASSIUM - SERUM 3.1 mmol/L (3.5-5.1); PROTEIN - SERUM 6.3 g/dL (6.4-8.2)
[2018-10-29 08:15] VITALS: BP 126/65
[2018-10-29 11:31] VITALS: BP 122/69
[2018-10-29] MEDS ORDERED: COREG 3.1253.125 MG PO (16:34)
[2018-10-29 17:02] VITALS: BP 126/62
[2018-10-30 04:22] LABS: BASOPHILS 0.2 % (0-2); EOSINOPHILS 2.8 % (0-7); HEMATOCRIT 30.1 % (42.0-54.0); HEMOGLOBIN 9.6 g/dL (13.5-17.5); IMMATURE GRANULOCYTES 0.8 % (0-5); MCH 26.4 pg (26.0-34.0); MCHC 31.9 g/dL (31.0-37.0); MCV 82.7 fL (80.0-100.0); MONOCYTES 7.6 % (2-11); NEUTROPHILS 73.6 % (40-80); RBC 3.64 10x6/uL (4.20-6.10); WBC 12.2 10x3/uL (4.8-10.8)
[2018-10-30 04:29] LABS: PLATELET COUNT 81 10x3/uL (130-400)
[2018-10-30 04:46] LABS: ALBUMIN 1.8 g/dL (3.4-5.0); ANION GAP 17.5 mmol/L (8-16); BILIRUBIN - TOTAL 0.35 mg/dL (0.2-1.3); CALCIUM 7.7 mg/dL (8.5-10.1); CARBON DIOXIDE 19.4 mmol/L (21.0-32.0); POTASSIUM - SERUM 3.9 mmol/L (3.5-5.1); PROTEIN - SERUM 6.2 g/dL (6.4-8.2)
[2018-10-30 07:51] VITALS: BP 154/55
[2018-10-30 11:32] VITALS: BP 152/67
[2018-10-30 20:00] VITALS: BP 152/66
== END 2018-10-30 20:46 | DRG 682 ==
LOC: D.M2 18:24 → D.M3 18:40
PROVIDERS: Family Medicine Adult Medicine; Internal Medicine Nephrology; Student in an Organized Health Care Education/Training Program
PROC: 05H633Z Insertion of Infusion Device into Left Subclavian Vein, Percutaneous Approach (ICD-10-PCS; principal; 2018-10-25)
PROC: 0DH63UZ Insertion of Feeding Device into Stomach, Percutaneous Approach (ICD-10-PCS; 2018-10-26)
DX: N17.9 Acute kidney failure, unspecified (principal); E43 Unspecified severe protein-calorie malnutrition; R53.2 Functional quadriplegia; N39.0 Urinary tract infection, site not specified; I69.351 Hemiplegia and hemiparesis following cerebral infarction affecting right dominant side; I42.0 Dilated cardiomyopathy; E87.0 Hyperosmolality and hypernatremia; N13.9 Obstructive and reflux uropathy, unspecified; E11.22 Type 2 diabetes mellitus with diabetic chronic kidney disease; N18.9 Chronic kidney disease, unspecified; I25.10 Atherosclerotic heart disease of native coronary artery without angina pectoris; J44.9 Chronic obstructive pulmonary disease, unspecified; E11.51 Type 2 diabetes mellitus with diabetic peripheral angiopathy without gangrene; F03.90 Unspecified dementia, unspecified severity, without behavioral disturbance, psychotic disturbance, mood disturbance, and anxiety; Z68.31 Body mass index [BMI] 31.0-31.9, adult; I49.3 Ventricular premature depolarization; R13.10 Dysphagia, unspecified; T17.900A Unspecified foreign body in respiratory tract, part unspecified causing asphyxiation, initial encounter; Z89.611 Acquired absence of right leg above knee